=== PATIENT | male | born 1975 | race Caucasian/White ===

== ENCOUNTER 2021-05-28 07:55 | Outpatient (CLI) | payer BC, SELFPAY ==
[2021-05-28 08:36] LABS: Add Urine Microscopic? NO; Appearance Urine Clear (Clear); Bilirubin Urine Negative (Negative); Blood Urine Negative (Negative); Color Urine Yellow (Yellow); Glucose Urine UA Negative (Negative); Ketones Urine Negative (Negative); Leukocyte Esterase Ur Negative LEU/UL (NEGATIVE); Nitrate Urine Negative (Negative); Protein Urine Negative (Negative); Specific Grav Ur 1.017 (1.001-1.035); Urobilinogen Urine Negative mg/dL (<2.0)
[2021-05-28 08:36] LABS: Basophils Percent Auto 0.6 % (0.2-1.2); Eosinophils Percent Auto 0.6 % (0-4.4); Hematocrit 41.2 % (42.0-52.0); Hemoglobin 14.2 g/dL (14.0-18.0); Immature Granulocyte Absolute 0.02 K/mm3 (0.00-0.031); Immature Granulocyte Percent A 0.4 % (0-0.5); Lymphocytes Absolute Auto 1.47 K/mm3 (0.9-3.2); Lymphocytes Percent Auto 28.3 % (18.3-44.2); Mean Corpuscular HGB Conc 34.5 g/dl (32-36); Mean Corpuscular Hemoglobin 35.8 pg (26-34); Mean Corpuscular Volume 103.8 fl (80-100); Mean Platelet Volume 8.9 fl (7.4-10.4); Monocytes Absolute Auto 0.6 K/mm3 (0.1-0.6); Monocytes Percent Auto 11.4 % (2.6-8.5); Neutrophils Absolute Auto 3.1 K/mm3 (1.3-6.7); Neutrophils Percent Auto 58.7 % (45.5-73.1); Platelet Count Result 250 k/mm3 (150-375); Red Blood Count 3.97 M/mm3 (4.6-6.20); Red Cell Distribution Width 12.2 % (11.5-14.5); White Blood Count 5.2 K/mm3 (4.5-10.0)
[2021-05-28 08:45] LABS: Alanine Aminotransferase 64 U/L (4-50); Albumin Level 4.2 g/dL (3.5-5.1); Alkaline Phosphatase 76 U/L (38-126); Anion Gap 9 mmol/L (8-16); Aspartate Amino Transferase 75 U/L (17-59); Bilirubin,Total 0.8 mg/dL (0.2-1.3); Blood Urea Nitrogen 14 mg/dL (9-20); Calcium 9.1 mg/dL (8.4-10.2); Carbon Dioxide 28 mmol/L (22-30); Chloride 104 mmol/L (98-107); Estimated Glomerular Filt Rate > 60; Glucose 103 mg/dL (65-110); Potassium 3.9 mmol/L (3.4-5.0); Sodium 141 mmol/L (137-145)
[2021-05-28 08:48] LABS: Prothrombin Time 13.1 Seconds (11.1-14.7)
[2021-05-28 08:49] LABS: Partial Thromboplastin Time 24.6 SECONDS (22.3-36.8)
[2021-05-28 09:22] LABS: HIV 1/2 Ab P24 Ag Result Negative (Negative)
[2021-05-28 09:30] LABS: Vitamin D 25 Hydroxy 35.8 ng/mL
[2021-05-28 09:42] LABS: Hepatitis B Surface Antigen Negative (Negative)
[2021-05-28 09:48] LABS: HAV RESULT Negative (Negative); Hepatitis B Core IgM Result Negative (Negative)
[2021-05-28 10:00] LABS: Hepatitis C Virus Antibody Negative (Negative)
--- NOTE | 2021-05-28 10:13 | ECG_ITS ---
Measurements Intervals [place] Rate: 79 P: 59 PA: 164 QRS: 24 QRSD: 88 T: 29 QT: 366 QTc: 420 Interpretive Statements SINUS RHYTHM BASELINE ARTIFACT- II, III, AVF NORMAL ECG Electronically Signed On 05-28-2021 10:39:44 CDT by Rj Earl D.O.
[2021-05-28 10:15] LABS: Erythrocyte Sedimentation Rate 31 mm/hr (0-20)
== END 2021-05-28 07:56 | disposition home or self-care (01) ==
LOC: ANHLAB 07:58
PROVIDERS: PCP Family Medicine Sports Medicine; Visit Provider Family Medicine Sports Medicine
DX: Z01.818 Encounter for other preprocedural examination (principal)
CPT/HCPCS: 36415; 80053; 80074; 81003; 82306; 85025; 85610; 85652; 85730; 86703; 93005; G0432